=== PATIENT | female | born 1985 | race Caucasian/White ===

== ENCOUNTER 2018-08-27 07:30 | Inpatient (IN) | payer OTHER ==
[2018-08-27 13:53] LABS: RPR Titer ND
[2018-08-27 13:58] LABS: Absolute Lymphocytes (CBC) 1.6 K/uL (0.7-4.9); Absolute Monocytes 0.7 K/uL (0.1-1.3); Absolute Neutrophil 7.6 K/uL (1.8-8.0); Basophils % 0.3 % (0-1.3); Eosinophils % 0.7 % (0-4.4); Hematocrit 34.8 % (36.0-45.0); Lymphocytes % 15.7 % (15.3-44.8); MCH 30.8 pg (27.0-35.0); MCV 88.9 fL (80-100); MPV 9.3 fL (7.6-11.3); Monocytes % 6.7 % (3.3-12.3); RBC Red Blood Cell Count 3.91 M/uL (3.86-4.86)
--- NOTE | 2018-08-27 15:49 | PREOPHP ---
Date of Admission: 08/28/2018 History Of Present Illness: Ms. Eileen Rose is a 32-year-old female, 5, para 3-0-1-3, who has been followed by me during this with complications of prior section x3 and her passing away from a heart attack during this . She has also had mild anemia and has been on iron and vitamins. Past Medical History: Please see record. Family History: Please see record. Review of Systems: She reports no recent cough, cold, fever, or chills. No recent nausea, vomiting. She denies any magalis ast lumps or breast knots. has been active. She denies any vaginal bleeding or spotting or u rine symptoms. Physical Examination: General: Reveals female, in no apparent distress. Neck: Supple without adenopathy or thyromegaly. Lungs: Clear. Cardiac: Regular rate and rhythm without murmurs. Breasts: Not examined. Abdomen: Estimated weight is 7+ to 8+ pounds, vertex presentation. heart tones well hea rd in the lower quadrant. Extremities: Trace lower extremity edema. Impression: Term , prior section x3, requested sterilization. Plan: The patient will undergo repeat section. If at the time of surgery the lower segment is extremely thin, that would increase her risk of scar separation with any future pregnancies, we w ill perform tubal ligation. If no evidence of this, we will provide adequate contraception at her visit. Of note is that infant will be adopted by another co uple in an open adoption. KOBE/BEN Voice ID: [id number]
[2018-08-27 21:55] LABS: RPR (Rapid Plasma Reagin) NON-REACT (NON-REACT)
[2018-08-28] MEDS ORDERED: Ringers Lactate 1,000 ML IV PRN (05:38)
[2018-08-28] MEDS ORDERED: Ringers Lactate 1,000 ML IV SCH (06:00)
[2018-08-28] MEDS ORDERED: CEFAZOLIN 2 GM in NA CHLORIDE 0.9% 100 ML IVPB ONE (06:01)
[2018-08-28] MEDS ORDERED: METHYLERGONOVINE 0.2MG/ML AMP IM PRN ×2 (06:03→08:35)
[2018-08-28] MEDS ORDERED: CARBOPROST TROME 250 MCG/ML IM PRN ×2 (06:03→08:35)
[2018-08-28] MEDS ORDERED: FAMOTIDINE 20 MG/2 ML VIAL IV ONE (06:30)
[2018-08-28] MEDS ORDERED: NA CIT/CITRIC AC 30 ML ORAL UDC PO ONE (06:30)
[2018-08-28] MEDS ORDERED: METOCLOPRAMIDE 10 MG/2mL INJ IV SCH (06:30)
[2018-08-28] MEDS ORDERED: CEFAZOLIN 2GM (PREMIX IV) 2 GM/50 ML BAG ONE (06:50)
[2018-08-28 07:17] LABS: Urine Appearance CLOUDY; Urine Blood NEGATIVE (NEG); Urine Color YELLOW; Urine Glucose NEGATIVE (NEG); Urine Protein NEGATIVE (NEG); Urine Urobilinogen 0.2 mg/dL (0.2-1.0)
[2018-08-28 07:20] LABS: Urine Bilirubin 1+ (NEG)
[2018-08-28] MEDS ORDERED: MORPHINE SULFATE/PF 1 MG/ML (10 ML AMP) ONE (07:23)
[2018-08-28] MEDS ORDERED: LIDOCAINE 1% MPF 5 ML VIAL ONE (07:24)
[2018-08-28] MEDS ORDERED: OXYTOCIN 10 UNIT/ML ML IV ONE ×2 (07:24→08:22)
[2018-08-28] MEDS ORDERED: BUPIVACAINE 0.75% (PF) 2 ML SP ONE (07:24)
[2018-08-28 07:29] LABS: Calcium Oxalate Crystals- Ur PRESENT (NONE SEEN); Urine Bacteria >50 /HPF (<20); Urine Culture Reflex Order REFLEXED; Urine Mucus 1+ /HPF (NONE SEEN); Urine RBC NONE SEEN /HPF (NONE SEEN)
[2018-08-28] MEDS ORDERED: EPHEDRINE SULF 50 MG/ML VIAL ONE (07:51)
[2018-08-28] MEDS ORDERED: KETAMINE HCL 500 MG/5 ML VIAL ONE (07:56)
[2018-08-28] MEDS ORDERED: MIDAZOLAM HCL 2 MG/2 ML INJ ONE (07:56)
[2018-08-28] MEDS ORDERED: PROPOFOL 200 MG/20 ML VIAL IV ONE (08:04)
[2018-08-28] MEDS ORDERED: METHYLERGONOVINE 0.2 MG TAB PO PRN (08:35)
[2018-08-28] MEDS ORDERED: Oxycodone HCl/Acetaminophen 1 TAB TAB PO PRN (08:35)
[2018-08-28] MEDS ORDERED: ONDANSETRON 4 MG (ODT) TAB PO PRN (08:35)
[2018-08-28] MEDS ORDERED: KETOROLAC 30 MG/ML INJ IV PRN (08:35)
--- NOTE | 2018-08-28 08:39 | P.BOP ---
Preoperative diagnosis: 39 wk , 3 prior c-sections, requested sterilization Postoperative diagnosis: Same, delivery viable male , uterine scar poor healing Primary procedure: , BTL Car Attendant: Arcadio Tom Estimated blood loss: 800ml Specimen: placenta Findings: diaphanous lower utering segment, visible through tissue Anesthesia: Spinal Complications: None Drain(s): Urinary catheter Transferred to: Other (277) Condition: Good
[2018-08-28] MEDS ORDERED: OXYTOCIN/LR 20 UNIT/1,000 ML BAG IV SCH (09:00)
[2018-08-28 10:07] VITALS: BMI 39.7
[2018-08-28] MEDS ORDERED: Ringers Lactate 2,000 ML IV ONE (10:40)
[2018-08-28] MEDS: Oxycodone HCl/Acetaminophen 1 TAB TAB PO PRN ×3 (15:11→23:21)
--- NOTE | 2018-08-29 03:45 | OP ---
Surgeon: Ramo Scott MD Anesthesiologist: DEJA Middleton and Dr. Zac Dodson. Preoperative Diagnoses: A 39 week , prior x3, requests sterilization. Procedure: Spinal block anesthesia, repeat section, repair of lower transverse sec tion uterine scar, bilateral tubal ligation. Postoperative Diagnoses: A 39 week , prior x3, requests sterilization. Description Of Procedure: After satisfactory level of spinal block anesthesia was obtained, the narcisa ent had been given 2 g of Ancef for antibiotic prophylaxis. A Pfannenstiel skin incision was made, c arried down to the fascia. Fascia incised with a combination of sharp and blunt dissection. This wa s from the underlying rectus muscles. These were in the midline. Peritoneum ent ered. Upon entering the peritoneum, the lower uterine segment was extremely thin and you could see t he infant and fluid below the nearly diaphanous layer of tissue. This was incised. Infant was an 8 pounds 1 ounce male infant, 8 and 9, was delivered in vertex presentation. The cord was milked from the placenta toward the . Cord was clamped, cut, and the infant placed in a warmer. Inf ant was noted to have cord around the neck x2 loosely. Cord blood was obtained. The placenta was ma nually removed. The uterus was then exteriorized. The cervix was dilated from above with a ring cla mp which was passed from the operative field. Defect was closed with two layers of 0 Vicryl suture i n a running nonlocking fashion, second layer used to imbricate the first. Good hemostasis was noted. A decision was made to proceed with tubal ligation because of both patient's desire, now 4 sections, and with the aforementioned defect noted in the lower segment at the time of surgery. The tube was grasped with a Ivania clamp. Mesosalpinx was cauterized. An avascular window was created . Two sutures of 0 chromic were used proximally and distally to a 1 cm segment of tube which was the n excised. The left tube was likewise ligated. The uterus was returned to peritoneal cavity. A lef t paratubal cyst was drained and devitalized with bipolar cautery. The rectus muscles were approxima cornelius in the midline with simple sutures of 0 Vicryl. The fascia was closed with a running suture of # 1 Vicryl from either margin to the middle. The subcutaneous suture closed with simple interrupted kinney tures of 3-0 Vicryl, subdermal suture of 3-0 Vicryl, subcuticular suture of 4-0 Monocryl. The patien t was taken to the recovery room in a satisfactory condition with Munoz catheter in place. Sponge an d needle counts were correct x2 with approximately 800 mL estimated blood loss. Sinker Puller Surgeon: Dr. Tom. KOBE/BEN Voice ID: [id number] Report ID: [id number]
[2018-08-29] MEDS: Oxycodone HCl/Acetaminophen 1 TAB TAB PO PRN ×2 (04:34→07:50)
[2018-08-29] MEDS ORDERED: Ringers Lactate 1,000 ML IV ONE (05:29)
[2018-08-29 06:10] LABS: Absolute Lymphocytes (CBC) 0.9 K/uL (0.7-4.9); Absolute Monocytes 0.7 K/uL (0.1-1.3); Absolute Neutrophil 8.3 K/uL (1.8-8.0); Basophils % 0.4 % (0-1.3); Eosinophils % 0.4 % (0-4.4); Hematocrit 22.2 % (36.0-45.0); Lymphocytes % 9.4 % (15.3-44.8); MCH 31.3 pg (27.0-35.0); MCV 90.1 fL (80-100); MPV 9.2 fL (7.6-11.3); Monocytes % 7.1 % (3.3-12.3); RBC Red Blood Cell Count 2.46 M/uL (3.86-4.86)
--- NOTE | 2018-08-29 08:04 | P.PN ---
Date of Service: 08/29/18 Unexplained significant drop in h/h, complaints of shoulder pain and diffuse abd. discomfort. Suspect intraabdominal bleeding, possibly from tubal ligation site. Will do ct of abdomen, cross match and begin transfusion, consider laparoscopic approach if intraabdominal bleeding confirmed on ct. Have notified radiology, and OR/surgery about possible case.
--- NOTE | 2018-08-29 08:22 | RAD REPORT ---
EXAM DESCRIPTION: CT - Abdomen Pelvis W Contrast - 08/29/2018 8:05 am CLINICAL HISTORY: Abdominal pain, shoulder pain, recent , decreasing hematocrit COMPARISON: None. TECHNIQUE: Axial 5 millimeter thick images were obtained following bolus IV contrast administration. No adequate IV access could be obtained to allow all biphasic technique. Initial acquisition was wit hout IV contrast due to difficulty with injection. Coronal reformatted image was generated and review ed. All CT scans are performed using dose optimization technique as appropriate and may include automated exposure control or mA/KV adjustment according to patient size. FINDINGS: Small right pleural effusion is present. Bilateral lung base atelectasis present. No peric ardial thickening or effusion. No cardiomegaly. The liver, spleen, and pancreas show no suspicious findings. Gallbladder is distended. No gallstones seen. No acute gallbladder process identified. There is no biliary tree dilatation. Renal function is symmetric. There is mild right-sided hydronephrosis without obstructing calculus. F unction of the right kidney does not appear delayed. Dilatation is likely due to extrinsic compressio n from the enlarged uterus. No pyelonephritis or acute parenchymal process. Urinary bladder is mostly contracted around a Munoz catheter. No adrenal abnormalities. No dilated bowel loops or bowel wall thickening. Minimal amount of free air is present not unexpecte d given the very recent . Enlarged uterus is present also normal. Trace amount of air within the fundal portion of the endometrial cavity is not unexpected. No primary ovarian process seen. Air in stranding are present in the low anterior abdominal wall along the site. This is nor mal. Patient has an approximately 4 centimeter AP x 11 centimeter TR x 5 cm CC abdominal wall hematom a at the site. There is a small amount of air along the abdominal wall and musculature. The area is normal for the surgery. A moderate amount of intraperitoneal hemorrhage is present. The hyperdense bloody fluid is seen along the anterior margin of the uterus and extending into each pericolic gutter. Low-density fluid is pre sent in the left upper quadrant surrounding the spleen with a trace amount along the right-side liver capsule. On the post-injection imaging no active extravasation is confirmed. No suspicious bony findings. No acute vascular finding. Images were reviewed and discussed with the referring physician immediately following the examination . IMPRESSION: Moderate amount of intraperitoneal hemorrhage. Approximately 11 x 4 x 5 cm abdominal wall hematoma at the incision site. Mild right-sided hydronephrosis without evidence for delayed function of the right kidney. This is li frannie from extrinsic compression by the enlarged uterus. Small right pleural effusion with bilateral lung base atelectasis.
[2018-08-29] MEDS ORDERED: NA CHLORIDE 0.9% 0 ML ONE ×2 (08:23→08:33)
[2018-08-29] MEDS ORDERED: NA CHLORIDE 0.9% 1,000 ML ONE ×2 (08:29→08:31)
[2018-08-29] MEDS ORDERED: GLYCOPYRROLATE 0.2 MG/ML SYR ONE (08:36)
[2018-08-29] MEDS ORDERED: ROCURONIUM 50 MG/5 ML VIAL IV ONE (08:36)
[2018-08-29] MEDS ORDERED: NEOSTIGMINE 1 MG/ML -5 ML SYRINGE ONE (08:36)
[2018-08-29] MEDS ORDERED: LIDOCAINE 2% MPF 5 ML VIAL ONE (08:36)
[2018-08-29] MEDS ORDERED: MIDAZOLAM HCL 2 MG/2 ML INJ ONE (08:36)
[2018-08-29] MEDS ORDERED: PROPOFOL 200 MG/20 ML VIAL IV ONE (08:36)
[2018-08-29] MEDS ORDERED: ONDANSETRON 4 MG/2 ML VIAL ONE ×2 (08:36→11:06)
[2018-08-29] MEDS ORDERED: FENTANYL CITR 100 MCG/2 ML ONE (08:36)
[2018-08-29] MEDS ORDERED: CEFAZOLIN 2GM (PREMIX IV) 2 GM/50 ML BAG ONE (08:51)
[2018-08-29] MEDS ORDERED: SUCCINYLCHOLINE 20 MG/ML (10 ML) IV ONE (08:56)
[2018-08-29] MEDS ORDERED: NALOXONE 0.4 MG/ML VIAL IV PRN (10:56)
[2018-08-29] MEDS ORDERED: CARBOPROST TROME 250 MCG/ML IM PRN (10:56)
[2018-08-29] MEDS ORDERED: METHYLERGONOVINE 0.2 MG TAB PO PRN (10:56)
[2018-08-29] MEDS ORDERED: ONDANSETRON 4 MG (ODT) TAB PO PRN (10:56)
--- NOTE | 2018-08-29 11:00 | P.BOP ---
Preoperative diagnosis: Post operative bleeding Postoperative diagnosis: laparotomy and evacuation of subcutaneous hematoma, subfacial hematoma Primary procedure: evacuation of abdominal blood, partial right salpingectomy Industrial Technology Education Teacher: NONE,NONE Estimated blood loss: 30ml Specimen: none Anesthesia: General Complications: None Drain(s): Urinary catheter Transferred to: Recovery Room Condition: Good
[2018-08-29] MEDS ORDERED: MEPERIDINE HCL 25 MG/0.5 ML ONE ×2 (11:15→11:22)
[2018-08-29 11:28] VITALS: O2SAT 93
[2018-08-29] MEDS: MORPHINE/NS PCA 50 MG/50 ML PCA.SYRING IV PRN ×2 (12:07→21:45)
[2018-08-29 12:08] LABS: Hematocrit 28.9 % (36.0-45.0)
[2018-08-29] MEDS: Ringers Lactate 1,000 ML IV SCH (17:36)
[2018-08-30] MEDS: Ringers Lactate 1,000 ML IV SCH (01:02)
--- NOTE | 2018-08-30 02:04 | OP ---
Surgeon: Ramo Scott MD Anesthesiologist: Brianna Gates and Dr. Jagdish Albert. Preoperative Diagnosis: Intra-abdominal bleeding. Postoperative Diagnosis: Intra-abdominal bleeding. Procedures: Exploratory laparotomy, evacuation of subcutaneous and subfascial hematomas, and repair of right tubal ligation site with right partial salpingectomy. Description Of Procedure: After satisfactory level of general anesthesia was obtained, the patient w as prepped and draped in the usual fashion for abdominal surgery. The subcuticular suture was releas ed. Subcutaneous sutures and subdermal sutures were released. A small amount of subcutaneous hemato ma was drained. The fascial #1 Vicryl suture was released and the subfascial hematoma was evacuated. The rectus muscles approximated in midline with prior surgery were released. Entry into the perito librado cavity revealed dark blood present there. Blood was removed with combination of Molina suction a nd removing blood clots. It appeared to be the right distal segment of tube. Tubal ligation site wa s bleeding. Initial placement of suture bled. Because of this, the right partial salpingectomy of t he distal tube utilizing LigaSure device was performed. The peritoneal cavity was irrigated with Rin rashmi's lactate. The uterus was returned to peritoneal cavity, which was carefully inspected for other bleeding sites and continued bleeding. No other areas were noted. Because of some small amount of oozing near the uterine incision, a strip of Surgicel was placed in this area. The rectus muscles we re approximated in midline with simple sutures of 0 Vicryl. The fascia was closed with running sutur es of #1 Vicryl in a running nonlocking fashion from either margin to the middle. The subcutaneous t issue was approximated with simple sutures of 3-0 Vicryl after irrigating this tissue with warm salin e. Subdermal suture was used to approximate the skin edges, which were closed with subcuticular sutu re of 4-0 Monocryl. Estimated procedure blood loss was less than 30 cc. The patient was awakened, t aken to recovery room in satisfactory condition. Sponge and needle counts were correct x2 and she th en received 2 g of Ancef for antibiotic prophylaxis and a Munoz catheter was in place. KOBE/BEN Voice ID: [id number] Report ID: [id number]
[2018-08-30 06:31] LABS: Absolute Lymphocytes (CBC) 0.9 K/uL (0.7-4.9); Absolute Monocytes 0.9 K/uL (0.1-1.3); Absolute Neutrophil 12.1 K/uL (1.8-8.0); Basophils % 0.2 % (0-1.3); Eosinophils % 0.6 % (0-4.4); Hematocrit 29.6 % (36.0-45.0); Lymphocytes % 6.6 % (15.3-44.8); MCH 31.5 pg (27.0-35.0); MCV 89.5 fL (80-100); MPV 8.6 fL (7.6-11.3); Monocytes % 6.3 % (3.3-12.3); RBC Red Blood Cell Count 3.31 M/uL (3.86-4.86)
[2018-08-30] MEDS ORDERED: IBUPROFEN 200 MG TAB PO PRN (07:13)
[2018-08-30] MEDS ORDERED: KETOROLAC 30 MG/ML INJ IV ONE (07:16)
--- NOTE | 2018-08-30 07:24 | P.PN ---
S-Some discomfort O-Afeb, vs stable, bandage dry, abdomen not distended. h/h stable A-Satisfactoy P-Infant showed signs of withdrawal and mother of patient said Ms. Arellano had problems with narcotic addiction. Will try and limit narcotic use within limits of that needed to aid in recovery from /laparotomy. Ambulate, regular diet, plans discussed with patient.
[2018-08-30 09:11] LABS: Blood Morphology Comment NOT SEEN (NOT SEEN); Platelet Estimate ADEQ; Urine White Blood Cell Casts OK
[2018-08-30] MEDS: Oxycodone HCl/Acetaminophen 1 TAB TAB PO PRN ×3 (13:08→22:21)
[2018-08-31] MEDS: Oxycodone HCl/Acetaminophen 1 TAB TAB PO PRN ×3 (04:57→14:17)
[2018-08-31 11:19] VITALS: BP 141/74; TEMP 98.3
[2018-08-31 12:39] LABS: Absolute Lymphocytes (CBC) 1.7 K/uL (0.7-4.9); Absolute Monocytes 0.7 K/uL (0.1-1.3); Absolute Neutrophil 7.8 K/uL (1.8-8.0); Basophils % 0.3 % (0-1.3); Eosinophils % 1.4 % (0-4.4); Hematocrit 29.4 % (36.0-45.0); Lymphocytes % 16.1 % (15.3-44.8); MCH 30.6 pg (27.0-35.0); MCV 90.2 fL (80-100); MPV 8.1 fL (7.6-11.3); Monocytes % 6.7 % (3.3-12.3); RBC Red Blood Cell Count 3.26 M/uL (3.86-4.86)
--- NOTE | 2018-09-02 08:40 | DS ---
Date of Discharge: 08/31/2018 Final Hospital Discharge Diagnoses: 39-week , prior section x3, cesarea n delivery, tubal ligation, postoperative blood-loss anemia, hematoma of abdominal wall, delivery of viable male . Complications: Postoperative blood loss anemia, hematoma of the abdominal wall. Procedures: Spinal block anesthesia, repeat section, delivery of viable male , tubal ligation, exploratory laparotomy, evacuation of subcutaneous hematoma and subfascial hematoma, and pa rtial salpingectomy. Hospital Course: The patient is a 32-year-old female, 5, para 3-0-1-3 at 39 weeks gestation who underwent repeat section and tubal ligation, because at the time of surgery, t he lower uterine segment was extremely thin. Fetus was visible beneath this. Her postoperative cour se was complicated by drop in hematocrit from 34 to 22 on the first postoperative day with evidence o f intraabdominal bleeding. CT exam seemed to confirm this. Exploratory laparotomy revealed subcutan eous hematoma, subfascial hematoma, intraperitoneal blood with right tubal ligation site thought to b e the cause of bleeding. Partial right salpingectomy of the distal portion of the tube was performed . She was transfused a total of 3 units of packed red blood cells and did well postoperatively. She was dismissed on the third postoperative section day to be seen back in my office in 1 week . Lab work included an admission hemoglobin and hematocrit of 12.0 and 34.8, dismissal 10.4 and 29.6 . She had a nonreactive RPR. She was dismissed to continue taking her iron and vitamins wi th a prescription for Tylenol No. 3, #15, for pain relief with usual post section activity restrictions. KOBE/BEN Voice ID: [id number] Report ID: [id number]
== END 2018-08-31 14:31 | disposition home or self-care (01) | DRG 784 ==
LOC: 2ND-WC 08-28 06:00 → UNDOADMIN 08-28 06:35
PROVIDERS: ADMIT Specialist; ATTEND Specialist
PROC: 0UL70ZZ Occlusion of Bilateral Fallopian Tubes, Open Approach (ICD-10-PCS; 2018-08-28)
PROC: 10D00Z1 Extraction of Products of Conception, Low, Open Approach (ICD-10-PCS; principal; 2018-08-28 07:30)
PROC: 0UB50ZZ Excision of Right Fallopian Tube, Open Approach (ICD-10-PCS; 2018-08-29)
PROC: 0W3G0ZZ Control Bleeding in Peritoneal Cavity, Open Approach (ICD-10-PCS; 2018-08-29)
PROC: 30233N1 Transfusion of Nonautologous Red Blood Cells into Peripheral Vein, Percutaneous Approach (ICD-10-PCS; 2018-08-29)
DX: O34.211 Maternal care for low transverse scar from previous cesarean delivery (principal); O72.2 Delayed and secondary postpartum hemorrhage; N99.821 Postprocedural hemorrhage of a genitourinary system organ or structure following other procedure; D62 Acute posthemorrhagic anemia; O99.02 Anemia complicating childbirth; N85.8 Other specified noninflammatory disorders of uterus; O69.81X0 Labor and delivery complicated by cord around neck, without compression, not applicable or unspecified; Z3A.39 39 weeks gestation of pregnancy; Z37.0 Single live birth
CPT/HCPCS: 36415; 74177; 81001; 85014; 85018; 85025; 86592; 86704; 86850; 86900; 86901; 87086; 87088; 88302; 88307; J0330; J0690; J2175; J2210; J2250; J2270; J2405; J2590; J2704; J2710; J2765; J3010; J7030; P9016; Q9967